=== PATIENT | female | born 1940 | race Hispanic/Latino ===

== ENCOUNTER 2024-07-22 10:05 | Outpatient (CLI) | payer OTHER | END 2024-07-22 10:06 | disposition home or self-care (01) | LOC: CT 10:05 | PROVIDERS: ATTEND Family Medicine | DX: R31.29 Other microscopic hematuria (principal); R10.9 Unspecified abdominal pain; R35.0 Frequency of micturition; M54.50 Low back pain, unspecified; N28.9 Disorder of kidney and ureter, unspecified | CPT/HCPCS: 74176 ==